=== PATIENT | male | born 2000 | race Caucasian/White ===

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

== ENCOUNTER → 2025-01-03 | Outpatient (CLI) | payer BC ==
[~2025-01-03] MED LIST: CYCL-707 PO; NAPR-1405 PO
[2025-01-03 14:58] LABS: Trichomonas vaginalis (AMP) NOT DETECTED (NEGATIVE)
[2025-01-03 15:21] LABS: GC DNA AMPLIFICATION NEGATIVE (NEGATIVE)
== END ==
LOC: M WUC 12:14
PROVIDERS: ATTEND Nurse Practitioner Family
DX: R10.30 Lower abdominal pain, unspecified (principal); Z11.3 Encounter for screening for infections with a predominantly sexual mode of transmission